=== PATIENT | female | born 1945 | race Caucasian/White ===

== ENCOUNTER → 2017-08-02 | Outpatient (REF) | payer MEDICARE | LOC: M LAB REF 13:57 | DX: N64.89 Other specified disorders of breast (principal) | CPT/HCPCS: 88305 ==

== ENCOUNTER → 2018-08-27 | Outpatient (REF) | payer MEDICARE ==
[~2018-08-27] MED LIST: /ACETCOD2T PO; /CLON1TA PO; ACET50TA PO; AMLO10TA2 PO; ASPI81TA85 PO; ATEN100T7 PO; ATEN25TA PO; CALCTAB7 PO; CALTTAB2 PO; CHLO25TA PO; CLON-412 AD; GABA300C2 PO; HYDR20TA3 PO; LISI-538 PO; MELA5TAB17 PO; MELO7.5T3 PO; MIRA255PW PO; OMEP20CA3 PO; PENN1.5S2 TOP; SERT-138 PO; SIMV10TA2 PO; SITA50TAB PO; ULTR50TA PO; VITA200015 PO; VITA200016 PO; ZEST20TA8 PO
[2018-08-27 17:31] LABS: CREATININE, URINE 91.5 MG/DL; MALB URINE SIEMENS < 5.0 MG/L; MAU/CREAT RATIO 5.4 MCG/MG (0.0-30.0)
== END ==
LOC: M LAB REF 15:50
PROVIDERS: ATTEND Nurse Practitioner Family
DX: E11.9 Type 2 diabetes mellitus without complications (principal)

== ENCOUNTER → 2019-08-05 | Outpatient (CLI) | payer MEDICARE ==
[~2019-08-05] MED LIST changes: -/ACETCOD2T PO; -/CLON1TA PO; +ACET1TAB15 PO; -ACET50TA PO; +CLON-412 PO; +MAPA500T17 PO; -MELA5TAB17 PO; +MELA5TAB31 PO; -MIRA255PW PO; +POLY1POW4 PO; -SIMV10TA2 PO; +SIMV10TA21 PO
--- NOTE | 2019-08-05 15:56 | REP ---
Examination Requested: Cookie Swallow Reason For Exam: Dysphasia The procedure was performed by SLOANE Guevara, under the direct supervision of Dr. Peñaloza. The procedure was performed with Love Staton from speech pathology present. 5 ml aliquots of thin, pudding, mixed fruit, soft food, and hard food consistency barium was administered. Penetration was visualized with mixed fruit and with a thin consistency base. The detailed report of this examination will be provided by speech pathology. 1.0 minutes of fluoroscopy time was utilized for this procedure. Reviewed by SLOANE Holloway 08/05/2019 02:54 P Electronically Signed by Neo Peñaloza MD 08/05/2019 03:47 P
== END ==
LOC: M ST 11:06
PROVIDERS: ATTEND Internal Medicine Gastroenterology
DX: R13.10 Dysphagia, unspecified (principal)

== ENCOUNTER → 2020-02-10 | Outpatient (CLI) | payer MEDICARE ==
[~2020-02-10] MED LIST changes: -ASPI81TA85 PO; +ASPI81TA86 PO; +CALC-211 PO; -CALCTAB7 PO; -MELA5TAB31 PO; +MELA5TAB36 PO
--- NOTE | 2020-03-12 12:57 | REP ---
BILATERAL LOWER EXTREMITY ARTERIAL ULTRASOUND REASON FOR EXAM: History of atherosclerotic disease. FINDINGS: On the right, the ankle brachial index is 0.8. On the left, the ankle brachial index is 0.6. PSV RIGHT (cm/s) PSV LEFT (cm/s) PERMASTONE INSTALLER 72.1 biphasic 86.5 biphasic Profunda 81.0 biphasic 58.1 biphasic Proximal SFA 73.0 biphasic 374.0 monophasic Mid-SFA 173.0 biphasic 39.4 monophasic Distal SFA 94.4 biphasic 49.9 monophasic Popliteal 70.9 biphasic 33.5 monophasic Proximal DERRICK 51.5 triphasic 38.5 monophasic Tibioperoneal trunk 56.8 biphasic 47.4 monophasic Proximal TECHNICAL SERVICE ENGINEER 110.0 biphasic 19.6 monophasic Distal TECHNICAL SERVICE ENGINEER 206.0 monophasic 12.7 monophasic Distal DERRICK 113.0 monophasic 35.9 monophasic IMPRESSION: Heavily calcified vessels were seen bilaterally. MTDD
== END ==
LOC: M RAD 10:27
PROVIDERS: ATTEND Physician Assistant
DX: I70.213 Atherosclerosis of native arteries of extremities with intermittent claudication, bilateral legs (principal)

== ENCOUNTER → 2020-03-01 | Outpatient (CLI) | payer MEDICARE ==
[2020-03-01 13:10] LABS: HEMATOCRIT 38.1 % (36.0-47.0); HEMOGLOBIN 12.3 g/dl (12.0-15.5); MEAN CORPUSCULAR HEMOGLOBIN 30.9 pg (27.0-33.0); MEAN CORPUSCULAR HGB CONC 32.3 g/dl (32.0-36.5); MEAN CORPUSCULAR VOLUME 95.7 fl (80.0-96.0); PLATELET COUNT, AUTOMATED 218 10^3/uL (150-450); RED BLOOD COUNT 3.98 10^6/uL (4.00-5.40); WHITE BLOOD COUNT 9.8 10^3/uL (4.0-10.0)
[2020-03-01 13:39] LABS: BLOOD UREA NITROGEN 24 MG/DL (7-18); CALCIUM LEVEL 9.4 MG/DL (8.8-10.2); CARBON DIOXIDE LEVEL 31 MEQ/L (21-32); CHLORIDE LEVEL 103 MEQ/L (98-107); CREATININE FOR GFR 0.75 MG/DL (0.55-1.30); GLOMERULAR FILTRATION RATE > 60.0 (>39); GLUCOSE, FASTING 99 MG/DL (70-100); SODIUM LEVEL 138 MEQ/L (136-145)
== END ==
LOC: M LAB 12:17
PROVIDERS: ATTEND Physician Assistant
DX: I70.213 Atherosclerosis of native arteries of extremities with intermittent claudication, bilateral legs (principal); I87.2 Venous insufficiency (chronic) (peripheral)

== ENCOUNTER → 2021-02-01 | Outpatient (CLI) | payer MEDICARE ==
[~2021-02-01] MED LIST changes: -LISI-538 PO; +LISI20TA33 PO
--- NOTE | 2021-02-01 13:52 | REP ---
INDICATION: ATHSCL LITTLE TRAVERSE ARTERIS W/ CLADICATION TECHNIQUE: Bilateral lower extremity arterial ultrasound with Doppler FINDINGS: All numeric values represent peak systolic velocities in cm/SEC On the right: The ankle brachial index is 0.9. DELICATE FABRICS PRESSER: 115.3 biphasic Profunda: 87.3 biphasic SFA proximal: 63 biphasic SFA mid: 135.1/221.0 triphasic SFA distal: 98.2 biphasic Popliteal: 66.6 triphasic DERRICK proximal: 55.9 monophasic Tibioperoneal trunk: 44.1 monophasic/biphasic COFFEE PLANTATION WORKER proximal: 59.0 triphasic COFFEE PLANTATION WORKER distal: 54.8 monophasic DERRICK distal: 47.2 monophasic On the left: The ankle brachial index is 0.6. DELICATE FABRICS PRESSER: 84.9 triphasic Profunda: 122.5 triphasic SFA proximal: 338.8 monophasic SFA mid: 47.1 monophasic SFA distal: 37.9 monophasic Popliteal: 27.5 monophasic DERRICK proximal: 28.8 monophasic Tibioperoneal trunk: 53.8 monophasic COFFEE PLANTATION WORKER proximal: 20.1 monophasic COFFEE PLANTATION WORKER distal: 8.0 monophasic DERRICK distal: 33.6 monophasic A 3.5:1 stenosis was seen in the mid superficial femoral artery of the right leg. A 2.8:1 stenosis was seen in the superficial femoral artery proximally in the left leg. Heavily calcified vessels were seen in the right lower extremity from the common femoral artery to the tibioperoneal trunk with mixed waveforms IMPRESSION: As above <Electronically signed by Bryson Oates > 02/01/21 1964
== END ==
LOC: M RAD 12:21
PROVIDERS: ATTEND Surgery Vascular Surgery
DX: I70.213 Atherosclerosis of native arteries of extremities with intermittent claudication, bilateral legs (principal); I70.203 Unspecified atherosclerosis of native arteries of extremities, bilateral legs

== ENCOUNTER → 2021-04-06 | Outpatient (CLI) | payer MEDICARE ==
[~2021-04-06] MED LIST changes: +ALDA25TA2 PO; +FISH1000 PO; +ISOVUE-300 61% 50ML VIAL As Ordered ONE; +LIDOCAINE 1% MDV 20ML VIAL As Ordered ONE; +METO1TAB7 PO; +MIDAZOLAM INJ 2MG/2ML VIAL (J2250 PER 1MG) As Ordered ONE; +NS 1,000 ML IV ONE; +OPTI0.5D5 OP; +RA B1TAB7 PO; +fentaNYL 100 MCG/2 ML INJECTION (J3010) As Ordered ONE; +hydrALAZINE 20MG/ML 1ML VIAL (J0360 PER 20MG) As Ordered ONE
[2021-04-06 12:30] VITALS: BP 152/67
--- NOTE | 2021-04-07 16:12 | ROOPDOC ---
[facility] Report Of Operation Report of Operation DATE OF PROCEDURE: 04/06/21 PREPROCEDURE DIAGNOSES: Disabling claudication POSTPROCEDURE DIAGNOSES: Disabling claudication PROCEDURE PERFORMED: 1. Left SFA atherectomy and Angioplasty with Drug Coated Balloon 2. Angioplasty of left tibioperoneal trunk 3. Selective Catheterization, initial, 3rd order 4. Left leg Angiogram 5. Ultrasound Guided Percutaneous Entry SURGEON: Carl Elizabeth MD ANESTHESIA: Local and sedation ESTIMATED BLOOD LOSS: Approximately 5 mL. COMPLICATIONS: None FINDINGS: Improved flow to foot DESCRIPTION OF PROCEDURE: Patient was brought to the IR suite and placed on the IR table in supine position. No recent angiographic images of the aorta or extremity were performed and therefore a diagnostic angiogram was performed prior to any endovascular intervention. After anesthesia was administered, the patient's groins were prepped and draped in standard surgical fashion. Under ultrasound guidance, percutaneous entry into the right common femoral artery was performed with a micropuncture needle. Over guidewire exchange a microsheath was inserted and a 0.035" Glidewire was passed into the aorta. The microsheath was then exchanged for 5 Fr sheath and a flush catheter was passed through the sheath and into the aorta. An aortogram was performed and revealed patent bilateral renal arteries, normal sized aorta and patent bilateral iliac artery runoff. The aortic bifurcation was engaged and the Glidewire and catheter were passed to the distal left external iliac artery. Serial angiography of the leg was then performed and revealed a patent common femoral artery, profunda femoris artery and a near occlusive origin of the superficial femoral artery. 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 Below the knee, there was a short segments chronic total occlusion of the tibioperoneal trunk with a 3 vessel runoff to the foot via the anterior tibial artery being the main outflow vessel. The peroneal artery was patent and the posterior tibial artery had a chronic total occlusion in the mid segment with reconstitution below. The patient was administered a bolus of IV Heparin and additional doses were given throughout the case to ensure adequate anticoagulation. Over guidewire exchange and with fluoroscopic guidance the short 5 Fr sheath was replaced with a long 6 Fr destination sheath and crossing catheter. Using the crossing catheter and guidewire, the the proximal SFA total occlusion was traversed and the wire and catheter were placed in the distal popliteal artery. The guidewire was exchanged for a 4mm Spider filter and placed in the same location. The guiding catheter was then removed and exchanged for a Medtronic atherectomy device. Atherectomy in all four quadrants of the diseased segments of the proximal SFA and distal SFA distal SFA was performed. Repeat angiography revealed moderate improvement but with some persistent disease. The spider filter was exchanged for the 0.035 Glidewire and angioplasty of the diseased SFA was performed with 2 Medtronic Drug Coated Balloons (5mm x 120mm and 5mm x 150mm). Post-angioplasty angiography revealed resolution of stenosis in the treated segments and brisk flow. The Glidewire with crossing catheter was carefully maneuvered to the distal peroneal artery. The glidewire was exchanged for 0.014 wire and the guiding catheter was exchanged for a 2mm x 30mm balloon and angioplasty of the tibioperoneal was performed. Post-insufflation angiography revealed resolution of the stenosis and good flow into the foot. No further intervention was performed. Over fluoroscopic guidance, the sheath was retracted over the aortic bifurcation and removed. A Perclose closure device was then used to close the puncture site and a sterile dressing was then placed. CARL ELIZABETH MD Apr 06, 2021 15:16
== END ==
LOC: M IRPRO 08:23
PROVIDERS: ATTEND Surgery Vascular Surgery
DX: I70.212 Atherosclerosis of native arteries of extremities with intermittent claudication, left leg (principal); Z79.4 Long term (current) use of insulin; Z79.82 Long term (current) use of aspirin; Z79.899 Other long term (current) drug therapy
CPT/HCPCS: 37225; 37228; 75630; 75774; 99152; 99153; C1725; C1760; C1769; C1884; C1894; J0360; J1644; J2250; J3010; Q9967

== ENCOUNTER → 2021-05-04 | Outpatient (CLI) | payer MEDICARE ==
[~2021-05-04] MED LIST changes: +AMLO10TA PO; -CLON-412 AD; +CLOP75TA2 PO; +CLOPIDOGREL 75 MG TAB As Ordered ONE; +CLOPIDOGREL 75 MG TAB PO ONE; +D31000TA2 PO; +ECOT81TA5 PO; +FERR325T3 PO; +HYDR-4468 PO; -NS 1,000 ML IV ONE; +ONDANSETRON 4MG/2ML VIAL IV PRN; +PANT40TA29 PO; +ZOLO100T PO; -fentaNYL 100 MCG/2 ML INJECTION (J3010) As Ordered ONE; +fentaNYL 100 MCG/2 ML INJECTION As Ordered ONE; -hydrALAZINE 20MG/ML 1ML VIAL (J0360 PER 20MG) As Ordered ONE
[2021-05-04 13:45] VITALS: BP 131/60
== END ==
LOC: M IRPRO 08:14
PROVIDERS: ATTEND Surgery Vascular Surgery
DX: I70.291 Other atherosclerosis of native arteries of extremities, right leg (principal); F41.9 Anxiety disorder, unspecified; F32.A Depression, unspecified
CPT/HCPCS: 37225; 37228; 37232; 75630; 75774; 99152; 99153; C1714; C1725; C1760; C1769; C1884; C1887; C1894; C2623; J1644; J2250; J3010; Q9967

== ENCOUNTER → 2021-05-26 | Outpatient (CLI) | payer MEDICARE ==
[~2021-05-26] MED LIST changes: -CLOPIDOGREL 75 MG TAB As Ordered ONE; -CLOPIDOGREL 75 MG TAB PO ONE; -ISOVUE-300 61% 50ML VIAL As Ordered ONE; -LIDOCAINE 1% MDV 20ML VIAL As Ordered ONE; -MIDAZOLAM INJ 2MG/2ML VIAL (J2250 PER 1MG) As Ordered ONE; -ONDANSETRON 4MG/2ML VIAL IV PRN; -PANT40TA29 PO; -fentaNYL 100 MCG/2 ML INJECTION As Ordered ONE
--- NOTE | 2021-05-26 17:14 | REP ---
INDICATION: MONOCLONAL. COMPARISON: Multiple prior exams, most recently chest radiographs 12/04/2017. TECHNIQUE: Multiple views of the skeletal system. FINDINGS: AP and lateral views of the skull demonstrate no fracture or lytic lesion. AP and lateral views of the cervical spine demonstrate no compression fracture or malalignment. There is moderate spurring of C5 through C7 with moderate intervening disc space narrowing. There is diffuse sclerosis, spurring and narrowing at the posterior facet joints. No lytic lesions are seen. AP and lateral views of the thoracic spine demonstrate no compression fracture. There is normal thoracic kyphosis. There is mild diffuse spurring and degenerative disc space narrowing. Posterior elements are intact. No lytic lesion is seen. The lungs appear clear. The visualized portions of the ribs are unremarkable. AP and lateral views of the lumbar spine demonstrate no compression fracture. There is normal lumbar lordosis. There is moderate diffuse spurring and disc space narrowing. There is sclerosis and spurring at the posterior facet joints of L4-5 and L5-S1. No lytic lesion is seen. The posterior elements appear intact. AP view of the pelvis demonstrates a total right hip prosthesis. There are moderate degenerative changes at the left hip. There is no fracture or dislocation. No lytic lesion is seen. AP views of the humeri demonstrate no fracture or bone lesion. There are degenerative changes at the right elbow. AP views of both femurs demonstrate no fracture or lytic lesion. IMPRESSION: No suspicious bone lesions identified as discussed in detail above. <Electronically signed by Luis A Wang > 05/26/21 [id number]
== END ==
LOC: M RAD 16:09
PROVIDERS: ATTEND Internal Medicine Medical Oncology
DX: D47.2 Monoclonal gammopathy (principal)

== ENCOUNTER → 2021-05-30 | Outpatient (CLI) | payer MEDICARE ==
[~2021-05-30] MED LIST changes: +PANT40TA29 PO
== END ==
LOC: M RAD 13:42
PROVIDERS: ATTEND Surgery Vascular Surgery
DX: I70.213 Atherosclerosis of native arteries of extremities with intermittent claudication, bilateral legs (principal)

== ENCOUNTER → 2021-08-26 | Outpatient (CLI) | payer MEDICARE ==
[~2021-08-26] MED LIST changes: -D31000TA2 PO; +VITA100093 PO
== END ==
LOC: M LABSMTC 09:28
PROVIDERS: ATTEND Anesthesiology
DX: Z01.812 Encounter for preprocedural laboratory examination (principal); Z20.822 Contact with and (suspected) exposure to COVID-19

== ENCOUNTER → 2022-03-21 | Outpatient (CLI) | payer MEDICARE ==
[~2022-03-21] MED LIST changes: +D32000CA PO; +LISI40TA4 PO; +OMEG10002 PO; +OMEP-173 PO; +PRESCAP PO; +SUPETAB44 PO
== END ==
LOC: M PAIN 13:30
PROVIDERS: ATTEND Nurse Practitioner Family
DX: M79.18 Myalgia, other site (principal); E11.9 Type 2 diabetes mellitus without complications; R01.1 Cardiac murmur, unspecified; I10 Essential (primary) hypertension; F32.9 Major depressive disorder, single episode, unspecified; K21.9 Gastro-esophageal reflux disease without esophagitis; E78.5 Hyperlipidemia, unspecified; M19.90 Unspecified osteoarthritis, unspecified site; E27.9 Disorder of adrenal gland, unspecified; K31.4 Gastric diverticulum; Z79.02 Long term (current) use of antithrombotics/antiplatelets; Z79.84 Long term (current) use of oral hypoglycemic drugs; Z79.82 Long term (current) use of aspirin; Z79.899 Other long term (current) drug therapy

== ENCOUNTER → 2022-05-15 | Outpatient (CLI) | payer MEDICARE ==
[~2022-05-15] MED LIST changes: +GLIP5TAB8
== END ==
LOC: M LABSMTC 10:52
PROVIDERS: ATTEND Anesthesiology
DX: Z01.812 Encounter for preprocedural laboratory examination (principal); Z11.52 Encounter for screening for COVID-19

== ENCOUNTER → 2022-05-19 | Outpatient (CLI) | payer MEDICARE ==
[~2022-05-19] MED LIST changes: +BUPIVACAINE HCL 0.25% 10ML VIAL As Ordered ONE; +BUPIVACAINE HCL 0.25% 30ML VIAL As Ordered ONE; +TRIAMCINOLONE ACETONIDE SUSP 40MG/ML 1ML VIAL As Ordered ONE
== END ==
LOC: M PAIN 15:00
PROVIDERS: ATTEND Anesthesiology
DX: M79.18 Myalgia, other site (principal); E11.9 Type 2 diabetes mellitus without complications; R01.1 Cardiac murmur, unspecified; I10 Essential (primary) hypertension; F32.9 Major depressive disorder, single episode, unspecified; K21.9 Gastro-esophageal reflux disease without esophagitis; E78.5 Hyperlipidemia, unspecified; M19.90 Unspecified osteoarthritis, unspecified site; D47.2 Monoclonal gammopathy; E27.9 Disorder of adrenal gland, unspecified; Z79.84 Long term (current) use of oral hypoglycemic drugs; Z79.82 Long term (current) use of aspirin; Z79.899 Other long term (current) drug therapy; Z79.02 Long term (current) use of antithrombotics/antiplatelets
CPT/HCPCS: 20552; J3301

== ENCOUNTER → 2022-06-16 | Outpatient (CLI) | payer MEDICARE ==
[~2022-06-16] MED LIST changes: -BUPIVACAINE HCL 0.25% 10ML VIAL As Ordered ONE; -BUPIVACAINE HCL 0.25% 30ML VIAL As Ordered ONE; -TRIAMCINOLONE ACETONIDE SUSP 40MG/ML 1ML VIAL As Ordered ONE
== END ==
LOC: M PAIN 11:15
PROVIDERS: ATTEND Nurse Practitioner Family
DX: M51.16 Intervertebral disc disorders with radiculopathy, lumbar region (principal); G89.29 Other chronic pain; E11.9 Type 2 diabetes mellitus without complications; I10 Essential (primary) hypertension; K21.9 Gastro-esophageal reflux disease without esophagitis; Z86.59 Personal history of other mental and behavioral disorders; Z79.01 Long term (current) use of anticoagulants; Z79.82 Long term (current) use of aspirin; Z79.84 Long term (current) use of oral hypoglycemic drugs; Z79.899 Other long term (current) drug therapy

== ENCOUNTER → 2022-07-21 | Outpatient (CLI) | payer MEDICARE | LOC: M PAIN 15:15 | PROVIDERS: ATTEND Nurse Practitioner Family | DX: M46.1 Sacroiliitis, not elsewhere classified (principal); E11.9 Type 2 diabetes mellitus without complications; I10 Essential (primary) hypertension; F32.9 Major depressive disorder, single episode, unspecified; K21.9 Gastro-esophageal reflux disease without esophagitis; E78.5 Hyperlipidemia, unspecified; M19.90 Unspecified osteoarthritis, unspecified site; D47.2 Monoclonal gammopathy; K31.4 Gastric diverticulum; Z79.899 Other long term (current) drug therapy; Z79.02 Long term (current) use of antithrombotics/antiplatelets; Z79.82 Long term (current) use of aspirin; Z79.84 Long term (current) use of oral hypoglycemic drugs ==

== ENCOUNTER → 2023-04-18 | Outpatient (REF) | payer MEDICARE ==
[~2023-04-18] MED LIST changes: +GLIP5TAB17; -GLIP5TAB8; +OMEG12002 PO
[2023-04-19 18:10] LABS: CREATININE, URINE 74.5 MG/DL; MAU/CREAT RATIO 6.7 MCG/MG (0.0-30.0)
== END ==
LOC: M LAB REF 17:20
PROVIDERS: ATTEND Nurse Practitioner Family
DX: E11.9 Type 2 diabetes mellitus without complications (principal)

== ENCOUNTER → 2024-05-20 | Outpatient (CLI) | payer MEDICARE ==
[~2024-05-20] MED LIST changes: +CALTCHW5 PO; -GLIP5TAB17; +GLIP5TAB17 PO; +METO1TAB32 PO; +OPTI0.5D2 OP; -OPTI0.5D5 OP
== END ==
LOC: M RAD 11:23
PROVIDERS: ATTEND Internal Medicine Medical Oncology
DX: M54.50 Low back pain, unspecified (principal); M85.88 Other specified disorders of bone density and structure, other site; M47.816 Spondylosis without myelopathy or radiculopathy, lumbar region

== ENCOUNTER → 2024-09-25 | Outpatient (CLI) | payer MEDICARE | LOC: M PLARAD 10:29 | PROVIDERS: ATTEND Physical Medicine & Rehabilitation Pain Medicine | DX: M54.16 Radiculopathy, lumbar region (principal); M47.816 Spondylosis without myelopathy or radiculopathy, lumbar region; M48.062 Spinal stenosis, lumbar region with neurogenic claudication; M51.360 Other intervertebral disc degeneration, lumbar region with discogenic back pain only ==